=== PATIENT | female | born 2000 | race Caucasian/White ===

== ENCOUNTER 2024-08-04 05:51 | Inpatient (IN) | payer BC ==
[2024-08-04] MEDS ORDERED: METHYLERGONOVINE 0.2 MG/ML 1 ML AMP IM PRN (05:58)
[2024-08-04] MEDS ORDERED: OXYTOCIN 10 UNIT/ML 1 ML VIAL IM PRN (05:58)
[2024-08-04] MEDS ORDERED: miSOPROStoL 200 MCG TAB RECTAL PRN (05:58)
[2024-08-04] MEDS ORDERED: TRANEXAMIC 1,000 MG/100ML-NACL 1,000 MG in EMPTY BAG 1 BAG IV PRN (05:58)
[2024-08-04] MEDS ORDERED: miSOPROStoL 200 MCG TAB PO PRN (05:58)
[2024-08-04] MEDS ORDERED: CARBOPROST TROMETHAMINE 250 MCG/ML 1 ML AMP IM PRN (05:58)
[2024-08-04] MEDS ORDERED: TERBUTALINE 1 MG/ML VIAL SQ PRN (05:58)
[2024-08-04 06:25] LABS: Basophils % (A) 1 %; Eosinophils # (A) 0.1 k/uL (0-0.7); Eosinophils % (A) 1 %; HCT 28.7 % (34.0-46.0); HGB 9.2 gm/dL (11.4-16.0); Hypochromasia Moderate; Lymphocytes # (A) 2.1 k/uL (1.0-4.8); Lymphocytes % (A) 35 %; MCH 27.7 pg (25.0-35.0); MCV 86.4 fL (80.0-100.0); Mean Platelet Volume 10.9; Monocytes # (A) 0.3 k/uL (0-1.0); Monocytes % (A) 5 %; Neutrophils # (A) 3.4 k/uL (1.3-7.7); Neutrophils % (A) 56 %; Platelet Count 229 k/uL (150-450); Poikilocytosis Slight; RBC 3.32 m/uL (3.80-5.40); RDW 15.2 % (11.5-15.5)
[2024-08-04] MEDS: LACTATED RINGERS 1,000 ML IV SCH (06:28)
[2024-08-04] MEDS: OXYTOCIN 30 UNITS/500 ML NS 30 UNIT in SALINE 1 500ML.BAG IV SCH (06:29)
--- NOTE | 2024-08-04 07:39 | P.HPOB ---
History of Present Illness H&P Date: 08/04/24 Chief Complaint: induction of labor 23 year old presents at 40 weeks 3 days for induction of labor. Her cervix is 1/80/-2. She is archie irregularly. heart tones 135 with moderate variability and reactive. cat 1. Review of Systems All systems: negative Constitutional: Denies chills, Denies fever Eyes: denies blurred vision, denies pain Ears, nose, mouth and throat: Denies headache, Denies sore throat Cardiovascular: Denies chest pain, Denies shortness of breath Respiratory: Denies cough Gastrointestinal: Denies abdominal pain, Denies diarrhea, Denies nausea, Denies vomiting Genitourinary: Denies dysuria, Denies hematuria Musculoskeletal: Denies myalgias Integumentary: Denies pruritus, Denies rash Neurological: Denies numbness, Denies weakness Psychiatric: Denies anxiety, Denies depression Endocrine: Denies fatigue, Denies weight change Past Medical History Past Medical History: Asthma Additional Past Medical History / Comment(s): exercise induced History of Any Multi-Drug Resistant Organisms: None Reported Past Surgical History: No Surgical Hx Reported Past Anesthesia/Blood Transfusion Reactions: No Reported Reaction Additional Past Anesthesia/Blood Transfusion Reaction / Comment(s): hasn't had any anethesia Past Psychological History: No Psychological Hx Reported Smoking Status: Never smoker Past Alcohol Use History: None Reported Past Drug Use History: None Reported Medications and Allergies Home Medications Medication Instructions Recorded Confirmed Type Vit No.179/Iron/Folic 08/04/24 History [ Tablet] Allergies Allergy/AdvReac Type Severity Reaction Status Date / Time Penicillins Allergy Rash/Hives Verified 08/04/24 05:57 Exam Osteopathic Statement: *. No significant issues noted on an osteopathic structural exam other than those noted in the History and Physical/Consult. Intake and Output 08/03/24 08/04/24 08/04/24 22:59 06:59 14:59 Other: Weight 65.317 kg Heart: Regular rate and rhythm Lungs: Clear to auscultation bilaterally Abdomen: Soft, nontender Extremities: Negative Homans sign Results Result Diagrams: 08/04/24 06:14 Abnormal Lab Results - Last 24 Hours (Table) 08/04/24 Range/Units 06:14 RBC 3.32 L (3.80-5.40) m/uL Hgb 9.2 L (11.4-16.0) gm/dL Hct 28.7 L (34.0-46.0) % Assessment and Plan (1) Encounter for induction of labor Current Visit: Yes Status: Acute Code(s): Z34.90 - ENCNTR FOR SUPRVSN OF NOR MAL , UNSP, UNSP TRIMESTER SNOMED Code(s): 174829002 (2) 40 weeks gestation of Current Visit: Yes Status: Acute Code(s): Z3A.40 - 40 WEEKS GESTATION OF SNOMED Code(s): 15312692 Plan: 1. induction of labor with amniotomy and pitocin 2. anticipate normal vaginal delivery
[2024-08-04] MEDS: LIDOCAINE 0.5% (PF) 5 MG/ML (50 ML SDV) SQ PRN (17:00)
[2024-08-04] MEDS ORDERED: LANOLIN CREAM 1 GM TUBE TOPICAL PRN (17:12)
[2024-08-04] MEDS ORDERED: SIMETHICONE 80 MG CHEWABLE PO PRN (17:12)
[2024-08-04] MEDS ORDERED: diphenhydrAMINE 25 MG CAP PO PRN (17:12)
[2024-08-04] MEDS ORDERED: ZOLPIDEM 5 MG TAB PO PRN (17:12)
[2024-08-04] MEDS ORDERED: HYDROCORTISONE 2.5% RECTAL CREAM 30 GM TUBE RECTAL PRN (17:12)
[2024-08-04] MEDS ORDERED: diphenhydrAMINE 50 MG CAP PO PRN (17:12)
[2024-08-04] MEDS ORDERED: diphenhydrAMINE 50 MG/ML 1 ML VIAL IVP PRN ×2 (17:12)
[2024-08-04] MEDS ORDERED: OXYTOCIN 30 UNITS/500 ML NS 30 UNIT in SALINE 1 500ML.BAG IV SCH (17:15)
[2024-08-04] MEDS: BENZOCAINE/MENTHOL SPRAY 1 GM/SPRAY AEROSOL TOPICAL PRN (18:00)
[2024-08-04] MEDS: IBUPROFEN 800 MG TAB PO PRN (18:01)
[2024-08-04] MEDS: SENNOSIDES-DOCUSATE SODIUM 1 EACH TAB PO SCH (22:17)
[2024-08-04] MEDS: ACETAMINOPHEN TAB 500 MG TAB PO PRN (22:18)
[2024-08-04] MEDS: Rhogam IMMUNE GLOBULIN 1,500 UNIT/1 ML IM ONE (22:24)
[2024-08-05 07:41] LABS: Basophils % (A) 0 %; Eosinophils % (A) 0 %; Hypochromasia Marked; Lymphocytes # (A) 2.3 k/uL (1.0-4.8); Lymphocytes % (A) 20 %; MCH 27.5 pg (25.0-35.0); MCHC 31.7 g/dL (31.0-37.0); MCV 86.7 fL (80.0-100.0); Mean Platelet Volume 10.6; Monocytes # (A) 0.6 k/uL (0-1.0); Monocytes % (A) 5 %; Neutrophils # (A) 8.4 k/uL (1.3-7.7); Neutrophils % (A) 73 %; Platelet Count 185 k/uL (150-450); Poikilocytosis Slight; RBC 2.77 m/uL (3.80-5.40); RDW 14.9 % (11.5-15.5); WBC 11.5 k/uL (3.8-10.6)
[2024-08-05 07:48] LABS: HGB 7.6 gm/dL (11.4-16.0)
--- NOTE | 2024-08-05 09:25 | P.PROBDLV ---
Vaginal Delivery Note - . Vaginal Delivery Note: 23 year old presents at 40 weeks 3 days for induction of labor. Her cervix is 1/80/-2. She is archie irregularly. heart tones 135 with moderate variability and reactive. cat 1.Amniotomy performed at 7:24 AM clear fluid noted. Pitocin augmentation was started. She started getting uncomfortable about 10:58 AM. She is nitrous for pain management and was completely dilated by 1623. She pushed, delivered a viable male infant over intact perineum at 16 52. Head delivered OA, nuchal cord 1 easily reduced, anterior shoulder delivered gentle downward guidance followed by posterior shoulder and rest of body. Nose and mouth bulb suctioned, cord clamped and cut, placed mother's abdomen. Apgars 9, 9, weight 8 pounds. Placenta delivered spontaneously, intact with three-vessel cord at 1656. Vagina, cervix, perineum inspected. Second-degree midline laceration was repaired with 3-0 Vicryl in 2-0 Vicryl. Estimated blood loss 160 mL. Mother and baby in stable condition.
--- NOTE | 2024-08-05 09:28 | P.DS ---
Providers Date of admission: 08/04/24 05:51 Expected date of discharge: 08/05/24 Attending physician: Awilda Myaer Primary care physician: Stated None - Discharge Diagnosis(es) (1) Encounter for induction of labor Current Visit: Yes Status: Resolved (2) 40 weeks gestation of Current Visit: Yes Status: Resolved (3) Status post normal vaginal delivery Current Visit: Yes Status: Acute Hospital Course: Patient presented for induction of labor. She underwent a normal vaginal delivery. course was benign uneventful. She denies nausea, vomiting, chest pain, shortness of breath or calf pain. Patient will be discharged home day #1 in stable condition to follow-up with me in 6 weeks. Plan - Discharge Summary New Discharge Prescriptions: New Ibuprofen [Motrin] 800 mg PO Q8HR PRN #30 tab PRN Reason: Pain No Action Vit No.179/Iron/Folic [ Tablet] Discharge Medication List Vit No.179/Iron/Folic [ Tablet] 08/04/24 [History] Ibuprofen [Motrin] 800 mg PO Q8HR PRN #30 tab 08/05/24 [Rx] Follow up Appointment(s)/Referral(s): Awilda Mayer DO [Doctor of Osteopathic Medicine] - 09/13/24 1:30 pm Discharge Disposition: HOME SELF-CARE
[2024-08-05] MEDS: FERROUS SULFATE 325 MG TAB PO SCH (18:39)
[2024-08-05 18:42] VITALS: RESP 16
[2024-08-06 08:56] VITALS: BP 114/71; PULSE 116; TEMP 98.8
== END 2024-08-06 15:47 | disposition home or self-care (01) | DRG 807 ==
LOC: 4FBP 05:51 → MERGE 06:00
PROVIDERS: ADMIT Obstetrics & Gynecology; ATTEND Obstetrics & Gynecology
PROC: 10E0XZZ Delivery of Products of Conception, External Approach (ICD-10-PCS; principal; 2024-08-04)
PROC: 0KQM0ZZ Repair Perineum Muscle, Open Approach (ICD-10-PCS; 2024-08-04)
PROC: 10907ZC Drainage of Amniotic Fluid, Therapeutic from Products of Conception, Via Natural or Artificial Opening (ICD-10-PCS; 2024-08-04)
PROC: 3E033VJ Introduction of Other Hormone into Peripheral Vein, Percutaneous Approach (ICD-10-PCS; 2024-08-04)
DX: O69.81X0 Labor and delivery complicated by cord around neck, without compression, not applicable or unspecified (principal); Z37.0 Single live birth; O70.1 Second degree perineal laceration during delivery; Z3A.40 40 weeks gestation of pregnancy; O99.52 Diseases of the respiratory system complicating childbirth; J45.909 Unspecified asthma, uncomplicated; Z88.0 Allergy status to penicillin
CPT/HCPCS: 85025; 85461; 86850; 86900; 86901